=== PATIENT | female | born 1995 | race Caucasian/White ===

== ENCOUNTER 2025-01-11 20:02 | Emergency (ER) | payer OTHER ==
[~2025-01-11] VITALS: Ht 165.1 cm; Wt 55.0 kg
[2025-01-11 20:37] VITALS: TEMP 37; O2SAT 100
[2025-01-11] MEDS ORDERED: ONDA4TAB50 MT (22:32)
[2025-01-11] MEDS ORDERED: RALT400T MT (22:32)
[2025-01-11] MEDS ORDERED: EMTR1TAB20 MT (22:32)
[2025-01-11 22:43] LABS: BASOPHILS % 1.2 % (0.0-2.0); EOSINOPHILS % 5.9 % (0.0-5.0); HEMATOCRIT. 40.3 % (36.0-48.0); HEMOGLOBIN. 13.7 g/dL (12.0-16.0); LYMPHOCYTES % 44.9 % (20.0-50.0); MEAN PLATELET VOLUME 8.8 fl (7.4-10.4); MONOCYTES % 6.0 % (2.0-8.0); NEUTROPHILS % 42.0 % (40.0-76.0); PLATELET 197 x1000/uL (130-400); RED BLOOD CELL COUNT 4.36 mill/uL (4.2-5.4); RED CELL DISTRIBUTION WIDTH 12.1 % (11.6-14.6)
[2025-01-11 22:56] LABS: HCG SCREEN NEGATIVE
[2025-01-11 22:59] LABS: CREATININE 0.8 mg/dL (0.6-1.0); UREA NITROGEN BLOOD 9 mg/dL (9-23)
[2025-01-11 23:01] LABS: ASPARTATE AMINOTRANSFERASE 21 IU/L (<34); BILIRUBIN TOTAL 1.5 mg/dL (0.1-1.0); PROTEIN TOTAL 7.4 g/dL (6.0-8.3)
[2025-01-11 23:30] VITALS: BP 114/80; PULSE 68; RESP 18; O2SAT 99
== END 2025-01-11 23:33 | disposition home or self-care (01) ==
LOC: ER 20:02
DX: S69.90XA Unspecified injury of unspecified wrist, hand and finger(s), initial encounter (principal); Z88.0 Allergy status to penicillin; W46.0XXA Contact with hypodermic needle, initial encounter; Y93.89 Activity, other specified; Y92.89 Other specified places as the place of occurrence of the external cause; Y99.0 Civilian activity done for income or pay
CPT/HCPCS: 36415; 80053; 84703; 85025; 86705; 87340; 99283